=== PATIENT | female | born 1980 | race Caucasian/White ===

== ENCOUNTER 2016-06-28 15:37 | Emergency (ER) | payer OTHER ==
[2016-06-28 15:41] VITALS: BP 130/80; PULSE 84; TEMP 98.9; BMI 22.8
[2016-06-28] MEDS ORDERED: PENICILLIN G BENZATHINE 1,200,000 UNIT/2 ML PFS IM ONE (15:41)
[2016-06-28] MEDS ORDERED: ACETAMINOPHEN 500 MG TABLET (FP) ONE (16:22)
[2016-06-28] MEDS ORDERED: PENICILLIN G BENZATHINE 2,400,000 UNIT/4 ML PFS ONE (17:10)
--- NOTE | 2016-06-28 17:17 | PDOC ---
History of Present Illness - General Chief Complaint: Cold Symptoms Stated Complaint: SORE THROAT, FEVER Time Seen by Provider: 06/28/16 15:39 History Source: Patient Exam Limitations: No Limitations - History of Present Illness Initial Comments: 06/28/16 17:11 CC sore throat with fever;o cough Timing/Duration: 24 hours Severity: moderate Associated Symptoms: reports: fever/chills, headaches. denies: cough, nausea/ vomiting, shortness of breath Past History - Past Medical History Allergies/Adverse Reactions: Allergies Allergy/AdvReac Type Severity Reaction Status Date / Time aspirin Allergy Verified 06/28/16 15:41 Home Medications: Ambulatory Orders NK [No Known Home Medication] 11/09/15 Anemia: No Asthma: No Cancer: No Cardiac Disorders: No CVA: No COPD: No CHF: No Dementia: No Diabetes: No GI Disorders: No Disorders: No HTN: No Hypercholesterolemia: No Liver Disease: No Suicide Attempt (Hx): No Seizures: No Thyroid Disease: No - Surgical History Abdominal Surgery: No Appendectomy: No Cardiac Surgery: No Cholecystectomy: No Lung Surgery: No Neurologic Surgery: No Orthopedic Surgery: No - Reproductive History (#): 4 Para: 1 Ectopic : No Therapeutic (s) & number: No - Psycho/Social/Smoking Cessation Hx Suicidal Ideation: No Smoking Status: No Smoking History: Never smoked Have you smoked in the past 12 months: No Number of Cigarettes Smoked Daily: 0 Information on smoking cessation initiated: No Hx Alcohol Use: No Drug/Substance Use Hx: No Substance Use Type: None Hx Substance Use Treatment: No Review of Systems - Review of Systems Constitutional: Yes: Chills, Fever, Malaise HEENTM: Yes: Throat Swelling. No: Blurred Vision, Nose Pain, Nose Congestion, Throat Pain Respiratory: Yes: Orthopnea. No: Symptoms reported, Cough Cardiac (ROS): No: Chest Pain ABD/GI: No: Symptoms Reported, Constipated, Diarrhea, Nausea, Vomiting : No: Dysuria, Hematuria Musculoskeletal: No: Gout *Physical Exam - Vital Signs Last Vital Signs Temp Pulse Resp BP Pulse Ox 98.9 F 84 18 130/80 99 06/28/16 15:39 06/28/16 15:39 06/28/16 15:39 06/28/16 15:39 06/28/16 15:39 - Physical Exam General Appearance: Yes: Appropriately Dressed HEENT: positive: Pharynx Normal. negative: TMs Normal, Nasal Congestion, Rhinorrhea, Sinus Tenderness, TM Bulging, TM Dull, TM Erythema Neck: positive: Supple, Lymphadenopathy (R), Lymphadenopathy (L). negative: Tender, Rigid, Stridor Respiratory/Chest: positive: Lungs Clear Cardiovascular: positive: Regular Rhythm, Regular Rate. negative: Murmur ED Treatment Course - ADDITIONAL ORDERS Additional order review: 06/28/16 15:43 Group A Strep Rapid Antigen - Final Throat Medical Decision Making - Medical Decision Making 06/28/16 17:17 Dr Schwartz treated with Bicillin shot for positive strep; tylenol given in ED *DC/Admit/Observation/Transfer Diagnosis at time of Disposition: Acute streptococcal pharyngitis - Discharge Dispostion Disposition: HOME Condition at time of disposition: Stable Admit: No - Patient Instructions Additional Instructions: tylenol for pain
== END 2016-06-28 17:20 | disposition home or self-care (01) ==
LOC: JERFT 15:37
DX: J02.0 Streptococcal pharyngitis (principal); B95.4 Other streptococcus as the cause of diseases classified elsewhere
CPT/HCPCS: 87070; 87430; 99281-25